=== PATIENT | female | born 1945 | race Caucasian/White ===

== ENCOUNTER 2016-12-03 10:50 | Inpatient (IN) | payer OTHER ==
[~2016-12-03] VITALS: Ht 170.2 cm; Wt 62.8 kg
[2016-12-03] MEDS ORDERED: SODIUM CHLORIDE 0.9% 1,000ML IVBOLUS ONE (11:30)
[2016-12-03] MEDS ORDERED: SODIUM CHLORIDE FLUSH 10ML SYR IVF ONE (11:30)
[2016-12-03] MEDS ORDERED: LOSA100T6 PO (11:33)
[2016-12-03] MEDS ORDERED: AMLO5TAB2 PO (11:33)
[2016-12-03] MEDS ORDERED: ATOR20TA PO (11:33)
[2016-12-03 12:26] LABS: ASPARTATE AMINO TRANSFERASE 35 U/L (15-37); BLOOD UREA NITROGEN 19 mg/dL (7-18)
[2016-12-03 12:27] LABS: IS PT STATUS REG ER OR PRE ER? YES
[2016-12-03] MEDS ORDERED: POTASSIUM CHLORIDE 40 MEQ in SODIUM CHLORIDE 0.9% 500 ML IV ONE (13:00)
[2016-12-03] MEDS ORDERED: POTASSIUM CHLORIDE 20 MEQ TAB.ER.PRT PO ONE (13:00)
[2016-12-03] MEDS ORDERED: POTASSIUM CHLORIDE 20 MEQ TAB.ER.PRT ONE (13:22)
[2016-12-03] MEDS ORDERED: NS + 20MEQ KCL 1,000 ML IV SCH (13:43)
[2016-12-03] MEDS ORDERED: ONDANSETRON ODT 4 MG PO PRN (14:00)
[2016-12-03] MEDS ORDERED: ONDANSETRON 2MG/ML, 2ML IVPush PRN (14:00)
[2016-12-03] MEDS ORDERED: LORazepam 2 MG/ML, 1ML IV PRN ×4 (14:30)
[2016-12-03] MEDS ORDERED: LORazepam 1MG TABLET PO PRN ×3 (14:30)
[2016-12-03] MEDS ORDERED: LORazepam 0.5MG TABLET PO PRN (14:30)
[2016-12-03 14:36] LABS: IS PT STATUS REG ER OR PRE ER? YES
[2016-12-03] MEDS ORDERED: MAGNESIUM SULFATE PMX 2GM/50ML 50 ML IV ONE (16:00)
[2016-12-03 16:03] VITALS: BP 128/68
[2016-12-03] MEDS ORDERED: POTASSIUM CHLORIDE 20 MEQ, MAGNESIUM SULFATE 1 GM, THIAMINE 100 MG, FOLIC ACID 1 MG, MV... IV SCH (16:30)
[2016-12-03] MEDS ORDERED: POTASSIUM CHLORIDE 20 MEQ TAB.ER.PRT PO SCH (17:00)
[2016-12-03] MEDS: ENOXAPARIN 40 MG/0.4 ML SQ SCH (17:22)
[2016-12-03 17:26] LABS: POTASSIUM,URINE RANDOM 11 mmol/L
[2016-12-03 20:00] VITALS: BP_SYST 109; BP_SYST 111; BP_SYST 114; BP_DIAS 65; BP_DIAS 70; BP_DIAS 72
[2016-12-03 20:20] LABS: IS PT STATUS REG ER OR PRE ER? NO
[2016-12-03] MEDS: POTASSIUM CHLORIDE 20 MEQ TAB.ER.PRT PO SCH (20:59)
[2016-12-03] MEDS: ATORVASTATIN 20 MG TABLET PO SCH (20:59)
[2016-12-04 02:00] VITALS: BP_SYST 144; BP_SYST 147; BP_SYST 161; BP_DIAS 78; BP_DIAS 84
[2016-12-04] MEDS: ASPIRIN 81 MG TABLET EC PO SCH (05:32)
[2016-12-04 06:42] LABS: ASPARTATE AMINO TRANSFERASE 33 U/L (15-37); BLOOD UREA NITROGEN 12 mg/dL (7-18)
[2016-12-04 06:59] VITALS: BP_SYST 157; BP_SYST 162; BP_DIAS 104; BP_DIAS 83; BP_DIAS 88
[2016-12-04] MEDS: POTASSIUM CHLORIDE 20 MEQ TAB.ER.PRT PO SCH ×2 (08:37→16:56)
[2016-12-04] MEDS: AMLODIPINE 5 MG TABLET PO SCH (08:38)
[2016-12-04] MEDS: LOSARTAN 50MG TABLET PO SCH (08:38)
[2016-12-04] MEDS ORDERED: POTASSIUM PHOSPHATE 44 MEQ in SODIUM CHLORIDE 0.9% 500 ML IV ONE (10:00)
[2016-12-04] MEDS: THIAMINE 100MG TABLET PO SCH (11:29)
[2016-12-04] MEDS: MULTIVITAMIN 1 TABLET PO SCH (11:29)
[2016-12-04] MEDS: ENOXAPARIN 40 MG/0.4 ML SQ SCH (14:02)
[2016-12-04 15:24] VITALS: BP_SYST 135; BP_SYST 137; BP_SYST 139; BP_DIAS 78; BP_DIAS 82
[2016-12-04 20:00] VITALS: BP 121/76
[2016-12-04] MEDS: ATORVASTATIN 20 MG TABLET PO SCH (20:33)
[2016-12-05 02:00] VITALS: BP 134/78
[2016-12-05 05:45] LABS: BLOOD UREA NITROGEN 8 mg/dL (7-18)
[2016-12-05] MEDS: ASPIRIN 81 MG TABLET EC PO SCH (06:24)
[2016-12-05 07:03] VITALS: BP 170/94
[2016-12-05] MEDS: LOSARTAN 50MG TABLET PO SCH (08:22)
[2016-12-05] MEDS: AMLODIPINE 5 MG TABLET PO SCH (08:22)
[2016-12-05] MEDS: POTASSIUM CHLORIDE 20 MEQ TAB.ER.PRT PO SCH (08:22)
[2016-12-05] MEDS: THIAMINE 100MG TABLET PO SCH (08:23)
[2016-12-05] MEDS: MULTIVITAMIN 1 TABLET PO SCH (08:23)
[2016-12-05] MEDS ORDERED: ASPI-621 PO (10:30)
== END 2016-12-05 15:15 | disposition home or self-care (01) | DRG 73 ==
LOC: ED 12:38 → EDIP 12:39 → ED 12:57 → 4EST 14:47 → DCLOUNGE 12-05 14:17
DX: G90.8 Other disorders of autonomic nervous system (principal); N17.0 Acute kidney failure with tubular necrosis; Z86.73 Personal history of transient ischemic attack (TIA), and cerebral infarction without residual deficits; E11.9 Type 2 diabetes mellitus without complications; E87.6 Hypokalemia; F10.20 Alcohol dependence, uncomplicated; G89.29 Other chronic pain; I10 Essential (primary) hypertension; E78.5 Hyperlipidemia, unspecified; E86.0 Dehydration; M54.9 Dorsalgia, unspecified
CPT/HCPCS: 36415; 70450; 71010; 80048; 80053; 80061; 81001; 82436; 82607; 82746; 83735; 84100; 84133; 84300; 84439; 84443; 84484; 85025; 85610; 85730; 87086; 93005; 93306; 96361; 96365; J1650; J3411; J3475; J3480; J7030; J7040

== ENCOUNTER → 2017-05-28 | Outpatient (CLI) | payer OTHER ==
[~2017-05-28] MED LIST: AMLO5TAB2 PO; ASPI-621 PO; ATOR20TA PO; BISA10SU65 PR; CHLO10CA6 PO; CYAN10002 IM; DOCU-131 PO; ENOX40SY4 SQ; FOLI-17 PO; LOSA100T6 PO; MAGN400T26 PO; MULT1TAB60 PO; THIA100T6 PO
== END ==
LOC: CFH 09:35
PROVIDERS: ATTEND Specialist
DX: Z12.31 Encounter for screening mammogram for malignant neoplasm of breast (principal)
CPT/HCPCS: 77063; G0202